=== PATIENT | male | born 1985 | race Caucasian/White ===

== ENCOUNTER 2016-10-30 17:00 | Emergency (ER) | payer OTHER ==
--- NOTE | ~2016-10-30 | CR72 ---
[facility] A Service of [facility] RADIOLOGY TEXT RESULTS PATIENT: BRANDEN BECKHAM LOCATION: SED : 87 UNIT #: [id number] AGE: [address]: Dino Mcmanus SEX: M ORDER DR: [id number] [address] [address] [id number] MR#: [id number] Acc #: [id number] NAME: BRANDEN BECKHAM : 1985 SEX: M STUDY DATE/TIME: 10/30/2016 17:27 UNIT: SED ROOM: STUDY DESCRIPTION: CR Chest Single View Portable Attending Physician: Dino Mcmanus P.A.-C. Ordering Physician: Dino Mcmanus P.A.-C. Primary Care Physician: Primary Care Physician No MEDICAL IMAGING REPORT This report is preliminary unless electronic signature is present. EXAM Portable chest x-ray, 10/30/2016 HISTORY Cough. 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 Chest pain today. COMPARISON 04/23/2015 FINDINGS AP radiograph of the chest presented. No acute bony abnormality. Heart and mediastinum normal in size and contour. The lungs are well inflated. The left lung is clear. Ill-defined patchy densities throughout the right lung with a greater predominance in the right mid to upper lung zone. Findings most suggestive of multifocal pneumonia in the right lung. Upper lobe predominance. Given the patient's stated history, correlate with any clinical concern for aspiration. There is no dense airspace disease. No cavitary abnormality. No suspicious nodule. No pleural effusion or pneumothorax. Followup to complete radiographic resolution is strongly recommended. Dictated by... Dino Higuera M.D. THIS IS AN ELECTRONICALLY VERIFIED REPORT Dino Higuera M.D. at 11/01/2016 5:52 PM RAYMUNDO/tiffanie TD: 10/31/2016 01:08 JOB #: [id number] [facility] A Service of [facility] RADIOLOGY TEXT RESULTS PATIENT: BRANDEN BECKHAM LOCATION: SED : 87 UNIT #: [id number] AGE: [address]: Dino Mcmanus SEX: M ORDER DR: MEDICAL IMAGING REPORT
[~2016-10-30 17:00] MED LIST: ATENOLOL50 MG PO; CILOXAN5 ML OP; IBUPROFEN PO; LOPRESSOR PO; NO MEDICATIONS; PERCOCET PO
== END 2016-10-30 18:31 ==
LOC: SED 17:00
DX: T40.1X1A Poisoning by heroin, accidental (unintentional), initial encounter (principal); J69.0 Pneumonitis due to inhalation of food and vomit
CPT/HCPCS: 71010; 99283